=== PATIENT | female | born 1955 | race Caucasian/White ===

== ENCOUNTER → 2019-01-14 | Outpatient (REF) | payer MEDICARE ==
[~2019-01-14] MED LIST: AUGMENTIN500 MG OR; CHOLESTEROL MED; CIPROFLOXACN250 MG PO; COLESTIPOL1 GM OR; FISH OIL1000 MG OR; HYDROCO/APAP1 T12 PO; LOMOTIL2.5 MG OR; LOPID600 MG PO; MAGNESIUM 250 M1 TAB PO; PERCOCET 5/325M1 TAB OR; PRILOSEC40 MG OR; PROLIA60 MG/ML SC
== END | disposition home or self-care (01) ==
LOC: MAMMO 08:53
PROVIDERS: ATTEND Internal Medicine
DX: Z12.31 Encounter for screening mammogram for malignant neoplasm of breast (principal)

== ENCOUNTER 2019-02-05 10:50 | Outpatient (REF) | payer MEDICARE ==
[~2019-02-05] VITALS: Ht 160 cm; Wt 62.6 kg
[~2019-02-05 10:50] MED LIST changes: -PROLIA60 MG/ML SC
[2019-02-05] MEDS ORDERED: PROLIA60 MG/ML SC (10:57)
== END 2019-02-05 11:39 | disposition home or self-care (01) ==
LOC: INF 10:50
PROVIDERS: ATTEND Nurse Practitioner Adult Health
DX: M81.0 Age-related osteoporosis without current pathological fracture (principal)
CPT/HCPCS: J0897

== ENCOUNTER 2022-07-11 19:00 | Inpatient (IN) | payer MEDICARE ==
[2022-07-11] VITALS (14 sets, daily range): BP systolic 93–125; BP diastolic 56–84
[~2022-07-11] VITALS: Ht 160 cm; Wt 59.1 kg
[~2022-07-11 19:00] MED LIST changes: -FISH OIL1000 MG OR; +FISH OIL1000 MG PO; -LOMOTIL2.5 MG OR; +LOMOTIL2.5 MG PO; +OMEPRAZOLE10 MG PO; -PERCOCET 5/325M1 TAB OR; +PERCOCET 5/325M1 TAB PO; -PRILOSEC40 MG OR; +PROLIA60 MG/ML SC
[2022-07-11 20:06] LABS: HEMATOCRIT 39.4 % (37.0-47.0); HEMOGLOBIN 12.8 g/dl (12.0-16.0); IMMATURE GRANULOCYTES 0.5 % (0.0-5.0); MEAN CELL VOLUME 88.3 fL CALC (80.0-100.0); MEAN CORPUSCULAR HGB 28.7 pG CALC (26.0-32.0); MEAN CORPUSCULAR HGB CONC 32.5 g/dL CAL (32.0-36.0); NEUT# 3.57 thou/uL (2.00-7.15); RED BLOOD COUNT 4.46 mill/uL (4.20-5.60); RED CELL DISTRI WIDTH 12.9 % (11.5-15.5)
[2022-07-11 20:07] LABS: URINE BILIRUBIN - DIPSTICK NEGATIVE (NEGATIVE); URINE BLOOD DIPSTICK TRACE-INTACT (NEGATIVE); URINE COLOR YELLOW; URINE GLUCOSE - DIPSTICK NEGATIVE (NEGATIVE); URINE KETONE NEGATIVE (NEGATIVE); URINE LEUK ESTERASE NEGATIVE (NEGATIVE); URINE PH 5.5 (4.5-8.0); URINE PROTEIN - DIPSTICK NEGATIVE (NEG-TRACE); URINE UROBILINOGEN - DIPSTICK 0.2 E.U./dL (0.2)
[2022-07-11 20:10] LABS: URINE NITRITE - DIPSTICK NEGATIVE (Negative)
[2022-07-11 20:16] LABS: ALBUMIN 4.7 g/dL (3.2-5.0); ALKALINE PHOSPHATASE 67 u/l (38-126); ANION GAP 17 (6-22 (CALC)); BILIRUBIN, TOTAL 0.2 mg/dL (0.0-1.4); BUN 20 mg/dL (8-23); BUN/CREATININE RATIO 24 (12-20 (CALC)); CARBON DIOXIDE 19 mmol/l (22-30); CHLORIDE 111 mmol/l (95-108); CREATININE 0.8 mg/dL (0.5-1.0); D-DIMER 0.23 mg/L (0.19-0.60); GFR FOR AFR.AMER. > 60 ML/MIN (>=60 (CALC)); GFR OTHER RACES > 60 ML/MIN (>=60 (CALC)); POTASSIUM 3.4 mmol/l (3.5-5.1); SGOT/AST 22 u/l (9-36); SODIUM 144 mmol/l (137-146); TOTAL PROTEIN 8.3 g/dL (6.3-8.2)
[2022-07-11 20:19] LABS: ACT PARTIAL THROMBO TIME 20.8 SECONDS (20.0-32.5); PROTHROMBIN TIME 10.1 SECONDS (9.0-12.5)
[2022-07-11 20:27] LABS: MYOGLOBIN 26 ng/mL (0 - 62)
[2022-07-11 20:45] LABS: TSH, 3RD GENERATION 1.13 uIU/mL (0.47 - 4.68)
[2022-07-12] VITALS (18 sets, daily range): BP systolic 68–124; BP diastolic 43–78
[2022-07-12 06:34] LABS: ANION GAP 12 (6-22 (CALC)); BUN 19 mg/dL (8-23); BUN/CREATININE RATIO 24 (12-20 (CALC)); CALCULATED LDLCHOLESTEROL 127 mg/dL (62-129 (CALC)); CARBON DIOXIDE 22 mmol/l (22-30); CHLORIDE 112 mmol/l (95-108); CHOLESTEROL HDL RATIO 4.3 (<4.4 (CALC)); CREATININE 0.8 mg/dL (0.5-1.0); GFR FOR AFR.AMER. > 60 ML/MIN (>=60 (CALC)); GFR OTHER RACES > 60 ML/MIN (>=60 (CALC)); HDL CHOLESTEROL 47 mg/dL (>=40); MAGNESIUM 1.7 mg/dL (1.6-2.3); POTASSIUM 3.8 mmol/l (3.5-5.1); SODIUM 142 mmol/l (137-146); TOTAL CHOLESTEROL 204 mg/dl (0-199); TOTAL TRIGLYCERIDES 150 mg/dl (30-149); VLDL CHOLESTROL 30 mg/dl (1-41 (CALC))
[2022-07-12] MEDS ORDERED: OXYCODONE10 M1 PO (14:09)
[2022-07-12] MEDS ORDERED: XARELTO20 MG PO (17:23)
[2022-07-12] MEDS ORDERED: LOPRESSOR25 MG PO (17:24)
== END 2022-07-12 18:00 | disposition home or self-care (01) | DRG 310 ==
LOC: ED 19:00 → ED-I 19:40 → ED 20:56 → ICU 20:57
PROVIDERS: Family Medicine; ADMIT Internal Medicine; ATTEND Internal Medicine
DX: I48.0 Paroxysmal atrial fibrillation (principal); E78.5 Hyperlipidemia, unspecified; Z95.828 Presence of other vascular implants and grafts; Z90.49 Acquired absence of other specified parts of digestive tract; Z87.19 Personal history of other diseases of the digestive system; Z20.822 Contact with and (suspected) exposure to COVID-19
CPT/HCPCS: J1650

== ENCOUNTER 2024-06-04 21:43 | Emergency (ER) | payer MEDICARE ==
[~2024-06-04] VITALS: Ht 160 cm; Wt 57.0 kg
[~2024-06-04 21:43] MED LIST changes: +LOPRESSOR25 MG PO; +OXYCODONE10 M1 PO; +XARELTO20 MG PO
[2024-06-04] MEDS ORDERED: SODIUM CHLORIDE 0.9% 1,000 ML IV ONE (22:55)
[2024-06-04 22:57] LABS: BASO% 0.5 % (0-3); EOS% 2.5 % (0-8); HEMATOCRIT 38.2 % (37.0-47.0); HEMOGLOBIN 12.5 g/dl (12.0-16.0); IMMATURE GRANULOCYTES 0.3 % (0.0-5.0); LYMPH% 36.3 % (15-41); MEAN CELL VOLUME 86.8 fL CALC (80.0-100.0); MEAN CORPUSCULAR HGB 28.4 pG CALC (26.0-32.0); MEAN CORPUSCULAR HGB CONC 32.7 g/dL CAL (32.0-36.0); MONO% 11.3 % (2-13); NEUT# 2.9 thou/uL (2.00-7.15); NEUT% 49.1 % (42-76); RED BLOOD COUNT 4.4 mill/uL (4.20-5.60)
[2024-06-04 23:23] LABS: CREATININE 1.1 mg/dL (0.5-1.0); POTASSIUM 3.5 mmol/l (3.5-5.1)
[2024-06-05 01:05] VITALS: BP 130/90
== END 2024-06-05 01:05 | disposition home or self-care (01) ==
LOC: ED 21:43
PROVIDERS: Family Medicine
DX: I48.0 Paroxysmal atrial fibrillation (principal); E78.00 Pure hypercholesterolemia, unspecified